=== PATIENT | male | born 1985 | race Caucasian/White ===

== ENCOUNTER 2022-12-06 21:41 | Emergency (ER) | payer OTHER, SELFPAY ==
[2022-12-06 21:48] VITALS: BP 139/125; PULSE 100; RESP 30; TEMP 37.1; O2SAT 100; BMI 39.1
--- NOTE | 2022-12-06 22:44 | ED_ITS ---
HPI - General Adult General Chief complaint: Unspecified Complaint, Adult Stated complaint: unspecified Time Seen by Provider: 12/06/22 22:25 History of Present Illness HPI narrative: This 37-year-old male comes in by ambulance because he feels tingling sensation in his hands and tongue and a bit in his feet. He is breathing faster than normal. He also reports some feeling of lightheadedness. He did take a gummy bear today but states that he does this every day. He has a history of gastric bypass and states that he has not had his regular dose of vitamin B12 which she gets monthly by injection. He arrives by ambulance where he did receive Ativan 2 mg en route. He still appears to be focused on his breathing and tingling sensations. He is not showing any sign of neurologic deficit. His speech is normal. Prior to this he is otherwise in good health. He states that he did lose weight from his gastric bypass surgery which was a bit more than a year ago but over the past winter months he started to gain a little bit of weight so he began to return to his previous strategies. Today he has had about 1200 calories and some liquids so he is not getting the amount of calories today also that he normally has been taking. Related Data Home Medications Medication Instructions Recorded Confirmed No Known Home Medications 12/06/22 12/06/22 Allergies Allergy/AdvReac Type Severity Reaction Status Date / Time No Known Drug Allergies Allergy Verified 12/06/22 21:48 Review of Systems Status of ROS: Reports: 10 or more systems reviewed and unremarkable except as noted in History and below Narrative: Constitutional: No fevers, no weight gain or loss. Eyes: No discharge. No vision changes. HENT: No congestion, no sore throat, no ear pain. Cardiovascular: No chest pain, no palpitations. Respiratory: No shortness of breath, no wheezes, no cough. Gastrointestinal: No abdominal pain, no vomiting, no diarrhea. Genitourinary: No dysuria, no hematuria. Musculoskeletal: Normal range of motion. Skin: No rashes, no pruritis. Neurological: No weakness, speech change. He reports some lightheadedness episodes. He also indicates paresthesias in his hands and feet and also in his tongue. Endo/Heme/Allergies: No bruising or bleeding. No polydipsia. Pysch: no suicidality, no anxiety, no insomnia. All other systems reviewed and are negative. [facility] Social History Smoking Status: Former smoker How often do you have a drink containing alcohol: never AUDIT-C Alcohol total score: 0 Non-prescribed substance use: marijuana (any form) service: No Exam Narrative: Exam Narrative: Constitutional: Well-developed, well-nourished, no acute distress. Vital signs are normal except for increased respiratory rate. Oximetry is at 98-100% on room air. HEENT: Normocephalic, atraumatic. Neck: Normal range of motion. Nontender. Supple. Heart: Regular. No murmurs. Normal rate. Intact distal pulses. Lungs: Clear to auscultation. No chest discomfort. No wheezes, rhonchi, or rales. He does have increased respiratory rate. Abdomen: Normal bowel sounds. Nontender. No rebound tenderness. Genitalia: Deferred. Back: No midline tenderness. Normal range of motion. Extremities: Normal range of motion. No injury. Skin: Intact. No rash. Warm. No erythema or pallor. Neurologic: No weakness. Alert and oriented. He reports altered sensation in his extremities as described above. Tongue is midline. No facial asymmetry. Speech is normal. Vcompw-fj-dccb is normal. No pronator drift. He can raise each leg to my hand. Psychiatric: No suicidality. No anxiety or depression. No insomnia. Nursing notes and vitals signs are reviewed. Const: Vital Signs, click to edit/add: Vital Signs - 24 hr 12/06/22 21:48 12/06/22 23:05 Temperature 98.7 F Pulse Rate 74 Pulse Rate [Left P ulse Oximeter] 100 Respiratory Rate 30 H Blood Pressure [Ri ght Upper Arm] 139/125 H Pulse Oximetry 100 92 Oxygen Delivery Me thod Room Air Course Vital Signs Vital signs: Initial Vital Signs Temperature 98.7 F 12/06/22 21:48 Temperature Source Temporal Artery Scan 12/06/22 21:48 Pulse Rate 100 12/06/22 21:48 Pulse Rhythm 12/06/22 21:48 Pulse Strength 3+ Normal 12/06/22 21:48 Respiratory Rate 30 H 12/06/22 21:48 Blood Pressure 139/125 H 12/06/22 21:48 Blood Pressure Mean 129 12/06/22 21:48 Blood Pressure Position Semi-Fowlers 12/06/22 21:48 Pulse Oximetry 100 12/06/22 21:48 Oxygen Delivery Method 12/06/22 21:48 Vital Signs Temperature 98.7 F 12/06/22 21:48 Pulse Rate 100 12/06/22 21:48 Respiratory Rate 30 H 12/06/22 21:48 Blood Pressure 139/125 H 12/06/22 21:48 Pulse Oximetry 100 12/06/22 21:48 Oxygen Delivery Method 12/06/22 21:48 Temperature 98.7 F 12/06/22 21:48 Pulse Rate 74 12/06/22 23:05 Respiratory Rate 30 H 12/06/22 21:48 Blood Pressure 139/125 H 12/06/22 21:48 Pulse Oximetry 92 12/06/22 23:05 Oxygen Delivery Method 12/06/22 21:48 Medical Decision Making MDM Narrative Medical decision making narrative: This patient comes in reporting tingling sensation in his extremities and in his tongue this started today. He is breathing faster than normal and appears anxious regarding this. He did receive a large dose of Ativan 2 mg and route here by ambulance personnel. This did not seem to help him with regard to his symptoms. He does arrive with normal vital signs except for his respiratory rate is increased. An IV was established where he did receive a L of normal saline and labs were acquired. These returned with reassuring findings. I did order a vitamin B12 level which results are yet pending. The patient states that he is overdue for his vitamin B12 shot. His gastric bypass surgery does put him at risk for vitamin B12 deficiency and this could explain his symptoms. He did receive an injection of vitamin B12 today. He states toward the end of his visit that he is feeling better. He does not appear anxious and is breathing more normally. I did advise him regarding signs and symptoms that would indicate a need for return and re-evaluation. Lab Data Labs: Lab Results 12/06/22 12/06/22 Range/Units 22:25 22:25 WBC 5.43 (4.50-11.00) K/uL RBC 5.59 (4.30-5.90) m/uL Hgb 15.7 (13.5-17.5) gm/dL Hct 45.2 (37.0-53.0) % MCV 81 (80-100) fL MCH 28 (26-34) pg MCHC 35 (32-36) gm/dL RDW Coeff of Marjan 12.0 (11.5-15.5) % Plt Count 289 (140-440) K/uL Neut % (Auto) 52.0 (42.0-72.0) % Lymph % (Auto) 35.4 (20-44) % Bradley % (Auto) 7.9 (0.0-11.0) % Eos % (Auto) 3.5 (0.0-7.0) % Baso % (Auto) 0.6 (0.0-3.0) % Neut # (Auto) 2.83 (1.7-7.0) K/uL Lymph # (Auto) 1.92 (0.90-2.90) K/uL Bradley # (Auto) 0.40 (0.00-0.90) K/UL Eos # (Auto) 0.19 (0.00-0.50) K/uL Baso # (Auto) 0.03 (0.00-0.30) K/uL Sodium 137 (135-149) mmol/L Potassium 3.5 L (3.6-5.1) mmol/L Chloride 107 (96-114) mmol/L Carbon Dioxide 20 (20-32) mmol/L BUN 13 (5-24) mg/dL Creatinine 0.8 (0.5-1.5) mg/dL Estimated Creat Clear 137.27 Estimated GFR 118 ml/min Glucose 116 H (60-115) mg/dL Calcium 9.3 (8.4-10.6) mg/dL C-Reactive Protein < 0.5 L (0.5-1.0) mg/dL Discharge Plan Discharge Clinical Impression: Paresthesias Patient Disposition: Home, Self-Care Condition: Improved Additional Instructions: Continue current plans. Follow up with MD or return if worsening symptoms occur. Prescriptions: No Action No Known Home Medications Stand Alone Forms: [facility]pl[facility] Info Instructions
[2022-12-06 22:58] LABS: Basophils Absolute Auto 0.03 K/uL (0.00-0.30); Basophils Percent Auto 0.6 % (0.0-3.0); Eosinophils Absolute Auto 0.19 K/uL (0.00-0.50); Eosinophils Percent Auto 3.5 % (0.0-7.0); Hematocrit 45.2 % (37.0-53.0); Hemoglobin* 15.7 gm/dL (13.5-17.5); Immature Granulocytes Abs Auto 0.03 K/uL (0.00-0.30); Immature Granulocytes Pct Auto 0.6 %; Lymphocytes Absolute Auto 1.92 K/uL (0.90-2.90); Lymphocytes Percent Auto 35.4 % (20-44); Mean Corpuscular HGB Conc 35 gm/dL (32-36); Mean Corpuscular Hemoglobin 28 pg (26-34); Mean Corpuscular Volume 81 fL (80-100); Monocytes Percent Auto 7.9 % (0.0-11.0); Neutrophils Absolute Auto 2.83 K/uL (1.7-7.0); Platelet Count* 289 K/uL (140-440); Red Blood Count 5.59 m/uL (4.30-5.90); White Blood Count* 5.43 K/uL (4.50-11.00)
[2022-12-06 22:59] LABS: Slide Review Reflex No
[2022-12-06] MEDS: 0.9 % SODIUM CHLORIDE 1000 ml 1,000 ML IV (23:00)
[2022-12-06 23:05] VITALS: PULSE 74; O2SAT 92
[2022-12-06 23:09] LABS: Chloride* 107 mmol/L (96-114); Potassium* 3.5 mmol/L (3.6-5.1); Sodium* 137 mmol/L (135-149)
[2022-12-06 23:12] LABS: Blood Urea Nitrogen* 13 mg/dL (5-24); Carbon Dioxide* 20 mmol/L (20-32); Creatinine* 0.8 mg/dL (0.5-1.5); Est. Creatinine Clearance* 137.27; Estimated Glomerular Filt Rate 118 ml/min
[2022-12-06 23:13] LABS: Calcium* 9.3 mg/dL (8.4-10.6); Glucose* 116 mg/dL (60-115)
[2022-12-06] MEDS: CYANOCOBALAMIN 1,000 MCG/ML inj 1000 MCG IM (23:15)
[2022-12-06 23:18] LABS: C Reactive Protein* < 0.5 mg/dL (0.5-1.0)
[2022-12-07 00:02] LABS: Vitamin B12* 732 pg/mL (243-894)
== END 2022-12-07 00:12 | disposition home or self-care (01) ==
LOC: ED 23:59
PROVIDERS: Emergency Provider Emergency Medicine Emergency Medical Services; PCP Family Medicine
DX: R20.2 Paresthesia of skin (principal)
CPT/HCPCS: 36415; 80048; 82607; 85025; 86140; 96372; 99283; 99284; A0425; A0427; J3420; J7030

== ENCOUNTER 2025-05-30 16:49 | Emergency (ER) | payer OTHER, SELFPAY ==
--- OUTSIDE RECORDS SUMMARY | 2025-05-25 09:30 | XMS_ITS | Encounter Summary ---
Author Organization [facility] Address [address] [place] [address] Care Team Providers Care It Support Specialist Name Role Phone Anjali Arzola APRN, C.N.P. Primary Care Provide r Reason for Visit * Reason Comments Herpes Zoster Post Urgent Care Vis it. Pain has gotten worse since urgent care since 05/11/25- started out as a soreness and not its a stabbing sunburn type of pain. Rash has spread to the chest to the back. Completed antivirals. * Appointment Request (Routine) - Closed Specialty Diagnoses / Procedures Referred By Stephen sheldon Referred To Contact Family Medicine Referral ID Status Reason Start Date Expiration Date Visits Re quested Visits Authorized [id number] Closed 05/24/2025 08/24/2026 1 1 Encounter Details Date Type Department Care Team (Late st Contact Info) Description 05/25/2025 9:30 AM CDT Office Visit Department of Family Medicine, [facility], in [place], [place] [address] [place] [id number] Jose-Carisa Rodriguez APRN, C.N.P., D.N.P. [address], [place] [phone] Neuralgia Post Herpetic (Primary Dx) Social History Tobacco Use Types Packs/Day Years Used Date Smoking Tobacco: Never Smokeless Tobacco: Never Tobacco Cessation:Counseling Given: Not Answered Alcohol Use Standard Drinks/Week Comments Yes 1 (1 standard drink = 0.6 oz pure alcohol) I drink almost daily. This started somewhat recently. (In the last year) [facility] Utilities Answer Date Recorded In the past 12 months has [facility] [employer], gas, oil, or water [employer] threatened to shut off services in your home? No 07/27/2024 Humiliation, Afraid, Rape, and Kick questionnair e Answer Date Recorded Within the last year, have y ou been afraid of your partner or ex-partner? No 11/06/2022 Within the last year, have y ou been humiliated or emotionally abused in other ways by your partner or ex-partner? No Within the last year, have y ou been kicked, hit, slapped, or otherwise physically hurt by your partner or ex-partner? No 11/06/2022 Within the last year, have y ou been raped or forced to have any kind of sexual activity by your partner or ex-partner? No 11/06/2022 Hunger Vital Sign Answer Date Recorded Within the past 12 months, y ou worried that your food would run out before you got the money to buy more. Never true 07/27/20 24 Within the past 12 months, t he food you bought just didn't last and you didn't have money to get more. Never true 07/27/2024 PRAPARE - Transportation Answer Date Re corded In the past 12 months, has l ack of transportation kept you from medical appointments or from getting medications? No 06/29 In the past 12 months, has l ack of transportation kept you from meetings, work, or from getting things needed for daily living? No 07/27/2024 Depression Answer Date Recor ded PHQ-9 Total Score (max 27) 16 03/14 Housing Stability Answer Date Recorded What is your living situation today? I have a [facility] place to live 07/27/2024 Education Answer Date Recorded What is the highest level of school you have completed or the highest degree you have received? 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 - 05/25/2025 9:30 AM CDT Images from the original note were not included. DATE OF VISIT: 05/25/2025 SUBJECTIVE CHIEF COMPLAINT / REASON FOR VISIT Lj Roberto is a 39 y.o. male who presents for evaluation of Herpes Zoster (Post Urgent Care Visit. //Pain has gotten worse since urgent care since 05/11/25- started out as a soreness and not its a stabbing sunburn type of pain. /Rash has spread to the chest to the back. /Completed antivirals.). The patient verbally consented to an audio recording of their visit to assist with the completion of documentation. History of Present Illness Mr. Lj Roberto Codey is a pleasant 39 year old male who presents with shingles pain. Approximately two to three weeks ago, he began experiencing back pain during a highly stressful period. The pain was described as being in a nerve band wrapping around his body, initially without anyrash. A few days later, he developed tightness in his chest on the right side. On Wednesday, ,he visited urgent care after noticing a few small rashes, as [place]. Despite going on the cruise, he spent most of the time sleeping due to discomfort. Over the subsequent weeks, his symptoms evolved to include extreme soreness, tightness, and a sensation loc to a severe sunburn, along with dull stabbing pain in the lower pectoral region and extreme skin sensitivity in the affected area. The pain wakes him up at night, significantly impacting hissleep. He has tried using Lidoderm patches on his back, where the pain initially started, but foundthem minimally effective. He completed a course of antiviral medication. He is currently taking Tylenol, three capsules two to three times a day, but finds it provides little relief. He cannot take NSAIDs due to a history of gastric bypass surgery. No weakness or paralysis, but he notes numbness when touching the rash. He describes jabbing poking pain and discomfort in the area. OBJECTIVE VITAL SIGNS BP 136/88 (BP Location: Right arm, Patient Position: Sitting, Cuff Size: Regular) Comment: Has beenhaving chest pain with the shingles- dont think thats related to blood pressure Pulse 90 Wt (!)151 kg BMI 45.54 kg/m?? Physical Exam Constitutional Appearance: Normal appearance. Skin Findings: Rash present. Comments: Post herpetic neuralgia Neurological Mental Status: He is alert. ASSESSMENT/ PLAN Neuralgia Post Herpetic Postherpetic neuralgia following shingles outbreak. Rash resolved, potential hyperpigmentation. Neurontin recommended for nerve pain. Capsaicin ointment as adjunct. Lidoderm patches ineffective. - Prescribe Neurontin 100 mg capsules TID, increase to 300 mg at night if tolerated. - Recommend capsaicin ointment for topical use. - Discuss ice packs for pain relief. - Advise against NSAIDs due to gastric bypass. - Consider increasing Neurontin to 300 mg BID if no improvement after a few weeks. Orders: gabapentin (Neurontin) 100 mg capsule; Take 1 capsule (100 mg total) by mouth 3 (three) times a day. capsaicin (Zostrix) 0.075 % cream; Apply 1 Application topically 3 (three) times a day. Apply to right side back and chest All questions answered and patient voiced understanding and agreed with this plan. documented in this encounter Plan of Treatment Scheduled Procedures Name Priority Associated Diagnoses Date/Ti me PANNICULECTOMY Gastric Bypass Status Post Pannus Abdominal documented as of this encounter Visit Diagnoses Diagnosis Neuralgia Post Herpetic- Primary documented in this encounter Additional Health Concerns Assessment Noted Time PHQ-9 Depression Total Score: 16 025 1:56 PM CDT documented as of this encounter Care Teams It Support Specialist Relationship Specialty Start Date End Date Anjali Arzola APRN, C.N.P. [address] [place] [phone] PCP - General 02/11/24 documented as of this encounter
--- OUTSIDE RECORDS SUMMARY | 2025-05-30 05:23 | XMS_ITS | Encounter Summary ---
Author Organization [facility] Address [address] [place] [id number] Care Team Providers Care Box Toe Stitcher Name Role Phone Anjali Arzola APRN, C.N.P. Primary Care Provide r Reason for Visit * Reason Comments Abdominal Pain Patient has been hav ing lower abdominal pain that goes around to his back on the right side since yesterday. He has not taken anything for the pain and has not had any emesis episodes but has been nauseous. Encounter Details Date Type Department Care Team (Late st Contact Info) Description 05/30/2025 5:23 AM CDT - 05/30/2025 6:55 AM CDT Emergency [facility] [address] [place] [id number] Kenneth Ramirez, Chelsea-Toby, P.A. [address] [place] [phone] Abdominal Pain (Primary Dx) Discharge Disposition: Home or Self Care Social History Tobacco Use Types Packs/Day Years Used Date Smoking Tobacco: Never Smokeless Tobacco: Never Alcohol Use Standard Drinks/Week Comments Yes 1 (1 standard drink = 0.6 oz pure alcohol) I drink almost daily. This started somewhat recently. (In the last year) [facility] Utilities Answer Date Recorded In the past 12 months has th e [employer] gas, oil, or water company threatened to shut off services in your [...] your living situation today? I have a [facility] place to live 07/27/2024 Education Answer Date Recorded What is the highest level of school you have completed or the highest degree you have received? 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 Legal Sex Male 4:09 PM HORSE DOCTOR Gender Identity Male 11/03/2019 10:21 PM HORSE DOCTOR Sexual Orientation Straight 11/03/2019 10 :21 PM HORSE DOCTOR documented as of this encounter Last Filed Vital Signs Vital Sign Reading Time Taken Comments Blood Pressure 142/82 05/30/2025 6:45 AM CDT Pulse 93 05/30/2025 6:45 AM CDT Temperature 36.2 C (97.2 F) 05/30/2025 5:27 AM CDT Respiratory Rate 20 05/30/2025 5:27 AM CDT Oxygen Saturation 97% 05/30/2025 6:45 AM CDT Inhaled Oxygen Concentration - - Weight 150 kg (330 lb 4 oz) 05/30/2025 5:34 AM C DT Height - - Body Mass Index 45.22 03/31/2022 9:22 AM CDT documented in this encounter Discharge Instructions * Discharge Instructions* Kenneth Ramirez P.A.-C., Chelsea - 05/30/2025 6:35 AM CDT As discussed, your CT is negative. Follow up with the primary care provider in regards to this recent visit. Continue Tylenol with the pain. If you have any new or worsening symptoms, please do not hesitate to return back to the emergency department. See below for details. You were examined and treated today in the [facility] Emergency Department (ED) on an emergency basis. This visit is not a substitute for comprehensive and ongoing medical care. In most cases, you must let your primary physician evaluate you again. Call your doctor today to advise them ofyour ED visit and arrange for out patient follow up. Tell your doctor about any new or lasting problems. After you leave the ED today, please follow the instructions provided to you. Return to the Emergency Department for new, or worsening such as: You cannot stop vomiting. Your pain is only in one part of your belly, like on the right side. You have bloody or black poop, or poop that looks like tar. You have trouble breathing. You have chest pain. These symptoms may be an emergency. Get help right away. Call 911. Do not wait to see if the symptoms will go away. Do not drive yourself to the hospital. TYLENOL (also called acetaminophen) Tylenol is a very good drug that can be purchased without a prescription. 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 Dose: Acetaminophen 500 mg tablets - take 1 or 2 tablets by mouth 3-4 times daily only as needed. Do not take more than 4000 mg (which is 8 of the 500 mg pills) in any 24-hour period. Do not take themedicine for longer than 5 days without seeing a doctor. If you feel you need the medicine longer than 5 days, call your doctor to discuss the situation. -Do not continue this medication indefinitely. Taking this medication for prolonged period of time can have adverse effects such as damage to the liver, and bleeding in the stomach. -Stop this medication IMMEDIATELY and call your doctor if you notice any abdominal pain, nausea/vomiting, or dark or bloody stools. IBUPROFEN (also called Motrin or Advil) Ibuprofen is a very good drug and can be purchased without a prescription. It is a strong pain reliever, fever supervisor wood crew, and anti-inflammatory (reduce the swelling). Dose: Ibuprofen 200 mg tablets -take 3-4 tablets by mouth 3 times daily for 5 to 7 days. If you feel you need the medicine longer than this, call your doctor to discuss the situation. Do not take more than 2400 mg (which is 12 of the 200 mg tablets) in any 24-hour period. -Do not continue this medication indefinitely. If taking this medication for a prolonged period of time can have adverse effects such as elevation of blood pressure, bleeding in the stomach, and kidney damage. -Stop this medication IMMEDIATELY and call your doctor if you notice any abdominal pain, nausea/vomiting, or dark or bloody stools. * Attachments The following attachments cannot be sent through Care Everywhere. * Abdominal Pain Adult [id number] (Vietnamese) documented in this encounter Medications at Time of Discharge capsaicin (Zostrix) 0.075 % creamIndications :Neuralgia Post Herpetic Apply 1 Application topically 3 (three) times a day. Apply to right side back and chest 28.3 g 05/25/2025 FLUoxetine (PROzac) 20 mg capsuleIndicatio ns:Depressive Disorder Take 1 capsule (20 mg total) by mouth daily. 30 capsule 2 03/14/2025 gabapentin (Neurontin) 100 mg capsuleIndicatio ns:Neuralgia Post Herpetic Take 1 capsule (100 mg total) by mouth 3 (three) times a day. 270 capsule 3 05/25/2025 documented as of this encounter ED Notes * Kenneth Ramirez P.A.-C., P.A. - 05/30/2025 5:39 AM CDT Images from the original note were not included. SUBJECTIVE CHIEF COMPLAINT/REASON FOR VISIT Abdominal Pain (Patient has been having lower abdominal pain that goes around to his back on the right side since yesterday. He has not taken anything for the pain and has not had any emesis episodesbut has been nauseous. ) HISTORY OF PRESENT ILLNESS Lj Roberto is a 39 y.o. male presents to emergency department for concerns of abdominal pain. Comorbidities include: Status post gastric bypass. 39-year-old male presents to the emergency department for evaluation of abdominal pain. Per chart review, the patient was recently seen on 05/25/2025 for a post-urgent care appointment after being diagnosed with herpes zoster. At that time, the patient continued to have symptoms of herpes zoster, including paresthesias in his area of pain; however, the rash had improved. He was subsequently started on gabapentin and capsaicin. The patient states that the rash has improved; however, yesterday he began developing bilateral lower abdominal pain, which he describes as a cramping sensation. He also noticed that yesterday he had ongoing diarrhea. He denies any recent travel, fevers, or chills. He denies bloody stools. He does note that the rash has improved, but he feels this is a different type of pain. He states the pain radiates from his b ack. On exam, the patient is well-appearing and in no acute distress. He does endorse nausea. He denies chest pain, shortness of breath, fevers, or chills. Denies testicular pain. REVIEW OF SYSTEMS OBJECTIVE Initial Vitals [05/30/25 0527] Temperature 36.2 ??C Pulse Rate 94 Heart Rate Resp Rate 20 Blood Pressure (!) 147/96 SpO2 98 % Pain Score 6 PHYSICAL EXAMINATION Constitutional: Nursing note and vitals reviewed. Vital signs are normal. He is cooperative. No distress. HENT: Head: Normocephalic and atraumatic. Head is without raccoon's eyes and without laceration. There is normal jaw occlusion. Nose: Nose normal. No rhinorrhea. Eyes: Conjunctivae, EOM and lids are normal. Periorbital area normal appearing. Pulmonary/Chest: Effort normal. No respiratory distress. Discoloration in his car where herpes zoster rash was. No overlying erythema, warmth. All blisteredhealed. Abdominal: Soft, nondistended abdomen. Left lower quadrant tenderness without any rebound, guarding or rigidity on examination. No right lower quadrant tenderness. No CVA tenderness bilaterally. Musculoskeletal: Cervical back: Full passive range of motion without pain. Neurological: Alert. Skin: Skin is warm and dry. ASSESSMENT/PLAN Assessment and Plan In brief, a 39-year-old male presents to the emergency department for evaluation of abdominal pain.Differential includes diverticulitis, UTI/pyelonephritis, less likely ischemic colitis/mesenteric ischemia, less likely testicular torsion, bowel obstruction, post-herpetic neuralgia, among others. On exam, the patient is well-appearing and in no acute distress. Physical exam as documented above. He endorses bilateral abdominal pain; however, on exam, he has left lower quadrant tenderness. Given the diarrhea, I question diverticulitis or another infectious etiology; however, given the focality of his pain, we will order a CT abdomen and pelvis. He has no epigastric tenderness that would be concerning for pancreatitis, so we will defer lipase. Given the focal tenderness, I have a lower suspicion for mesenteric ischemia. He denies any testicular pain or radiation to his testicles, so I havea lower suspicion for testicular torsion. He denies dysuria, frequency, or urgency. We will plan toorder a CT abdomen and pelvis along with CMP and CBC. Given that the patient has had bariatric surgery, we will defer NSAIDs and will give a dose of morphine and plan for Zofran given the nausea. SeeED course for final disposition. ED Course as of 05/30/25 0640 WedMay 30, 2025 0612 Estimated GFR (eGFR): >90 Normal renal function 0612 Creatinine: 0.86 Normal renal function 0613 Anion Gap, P: 13 Normal anion 0613 Aspartate Aminotransferase (AST), P: 27 AST within normal limits 0613 Alanine Aminotransferase (ALT), P: 36 ALT within normal limits 0613 Bilirubin, Total, P: 0.5 Bilirubin normal, less concern for biliary tree pathology or obstruction 0635 CT Abdomen Pelvis with IV Contrast No acute abdominopelvic findings to account for the patient's left lower quadrant discomfort. 2. Status post Lexie-en-Y gastric bypass. No obstruction or appreciable wall thickening. 3. Hepatomegaly. 0638 CT negative. Patient's pain improved. CBC without leukocytosis. CMP within normal limits. At this time, patient's recommended follow up with his outpatient primary care provider in regards to this recent visit. Understands that has there are any new or worsening symptoms, they should promptly return. Patient discharged in stable and ambulatory condition. Final Diagnoses: as of 05/30/25 0640 Abdominal Pain Kenneth Ramirez P.A.-C., P.A. 05/30/25 0640 documented in this encounter Plan of Treatment Scheduled Procedures Name Priority Associated Diagnoses Date/Ti me PANNICULECTOMY Gastric Bypass Status Post Pannus Abdominal documented as of this encounter Procedures Procedure Name Priority Date/Time Associated Diagnosis Comments CT ABDOMEN PELVIS WITH IV CONTRAST RAD - Semiurgent (Fast; most ED patients; some inpatients) 05/30/2025 6:24 AM CDT CBC WITH DIFFERENTIAL, B STAT 05/30/2025 5:46 AM CDT COMPREHENSIVE METABOLIC PANEL, S/P STAT 05/30/2025 5:46 AM CDT documented in this encounter Results * CT Abdomen Pelvis with IV Contrast (05/30/2025 6:24 AM CDT) Anatomical Region Laterality Modality Abdomen, Pelvis, Abdominal R ST LOS, Abdominal ARZ LOS, Abdominal FLA LOS N/A Computed Tomography 05/30/2025 6:25 AM CDT Impressions 05/30/2025 6:30 AM CDT 1. No acute abdominopelvic findings to account for the patient's left lower quadrant discomfort. 2. Status post Lexie-en-Y gastric bypass. No obstruction or appreciable wall thickening. 3. Hepatomegaly. Narrative 05/30/2025 6:30 AM CDT EXAM: CT ABDOMEN PELVIS WITH IV CONTRAST COMPARISON: None FINDINGS: Lower Thorax: Clear lung bases. Normal included heart and pericardium. Liver: Liver is enlarged, measuring 23 cm craniocaudal. Scattered too small to characterize hypodensities. Gallbladder/bile ducts: Normal gallbladder and bile ducts. Pancreas: Normal. Spleen: Normal. Adrenal glands: Normal. Kidneys/Ureters: Kidneys are symmetric in size and parenchymal enhancement pattern. No hydronephrosis or nephrolithiasis. Gastrointestinal tract: Normal distal esophagus. Status post Lexie-en-Y gastric bypass. No bowel obstruction or appreciable wall thickening. Normal appendix. Peritoneum/Retroperitoneum: No free air or free fluid. No retroperitoneal hematoma. Lymph nodes: No lymphadenopathy. Vascular: Normal caliber abdominal aorta. Normal IVC. Patent portal, superior mesenteric and splenic veins. Pelvis: No free fluid. Normal urinary bladder.Normal reproductive organs. Musculoskeletal: No acute soft tissue or osseous abnormality. No inguinal or ventral abdominal hernia. Procedure Note Mitchell Mohan M.D. - 05/30/2025 EXAM: CT ABDOMEN PELVIS WITH IV CONTRAST COMPARISON: None FINDINGS: Lower Thorax: Clear lung bases. Normal included heart and pericardium. Liver: Liver is enlarged, measuring 23 cm craniocaudal. Scattered toosmall to characterize hypodensities. Gallbladder/bile ducts: Normal gallbladder and bile ducts. Pancreas: Normal. Spleen: Normal. Adrenal glands: Normal. Kidneys/Ureters: Kidneys are symmetric in size and parenchymal enhancementpattern. No hydronephrosis or nephrolithiasis. Gastrointestinal tract: Normal distal esophagus. Status post Azyr-jh-Dajkvwqe bypass. No bowel obstruction or appreciable wall thickening.Normal appendix. Peritoneum/Retroperitoneum: No free air or free fluid. No retroperitonealhematoma. Lymph nodes: No lymphadenopathy. Vascular: Normal caliber abdominal aorta. Normal IVC. Patent portal,superior mesenteric and splenic veins. Pelvis: No free fluid. Normal urinary bladder.Normal reproductiveorgans. Musculoskeletal: No acute soft tissue or osseous abnormality. No inguinalor ventral abdominal hernia. IMPRESSION: 1. No acute abdominopelvic findings to account for the patient's leftlower quadrant discomfort. 2. Status post Lexie-en-Y gastric bypass. No obstruction or appreciablewall thickening. 3. Hepatomegaly. Kenneth Ramirez P.A.-C., P.A. IMG CT PROCEDURE S Final Result * CBC with Differential, Blood (05/30/2025 5:46 AM CDT) Hemoglobin 15.3 13.2 - 16.6 g/dL 05/30/2025 6:21 AM CDT CNFL Hematocrit 45.2 38.3 - 48.6 % 05/30/2025 6:21 AM CDT CNFL Erythrocytes 5.50 4.35 - 5.65 x10(12)/L 05/30/2025 6:21 AM CDT CNFL MCV 82.2 78.2 - 97.9 fL 05/30/2025 6:21 AM CDT CNFL RBC Distrib Width 12.7 11.8 - 14.5 % 05/30/2025 6:21 AM CDT CN[facility] Platelet Count 294 135 - 317 x10(9)/L 05/30/2025 6:21 AM CDT CNFL Leukocytes 6.0 3.4 - 9.6 x10(9)/L 05/30/2025 6:21 AM CDT CNFL Neutrophils 3.26 1.56 - 6.45 x10(9)/L 05/30/2025 6:21 AM CDT CNFL Lymphocytes 2.07 0.95 - 3.07 x10(9)/L 05/30/2025 6:21 AM CDT CNFL Monocytes 0.47 0.26 - 0.81 x10(9)/L 05/30/2025 6:21 AM CDT CNFL Eosinophils 0.16 0.03 - 0.48 x10(9)/L 05/30/2025 6:21 AM CDT CNFL Basophils 0.04 0.01 - 0.08 x10(9)/L 05/30/2025 6:21 AM CDT CNFL Blood (Blood, Venous) 05/30/2025 5:46 AM CDT 05/30/2025 5:50 AM CDT Chelsea Brothers P.A.-C. LAB BLOOD ADD-ON Final Result [facility] [address] [place] [id number], [facility] [[email or web address]] [facility] in [address] [address] * Comprehensive Metabolic Panel (05/30/2025 5:46 AM CDT) [facility] Potassium, P 4.2 3.6 - 5.2 mmol/L 05/30/2025 6:08 AM CDT CNFL Sodium, P 140 135 - 145 mmol/L 05/30/2025 6:08 AM CDT CNFL Chloride, P 104 98 - 107 mmol/L 05/30/2025 6:08 AM CDT CNFL Bicarbonate, P 23 22 - 29 mmol/L 05/30/2025 6:08 AM CDT CNFL Anion Gap, P 13 7 - 15 05/30/2025 6:08 AM CDT CNFL BUN (Blood Urea Nitrogen), P 12 8 - 24 mg/dL 05/30/2025 6:08 AM CDT CNFL Creatinine 0.86 0.74 - 1.35 mg/dL 05/30/2025 6:08 AM CDT CNFL Estimated GFR (eGFR) >90 >=60 mL/min/BS A 05/30/2025 6:08 AM CDT CNFL Comment: Estimated GFR calculated using the 2020 CKD_EPI creatinine equation. Calcium, Total, P 9.0 8.6 - 10.0 mg/dL 05/30/2025 6:08 AM CDT CNFL Glucose, P 110 70 - 140 mg/dL 05/30/2025 6:08 AM CDT CNFL Protein, Total, P 7.2 6.3 - 7.9 g/dL 05/30/2025 6:08 AM CDT CNFL Albumin, P 4.4 3.5 - 5.0 g/dL 05/30/2025 6:08 AM CDT CNFL Aspartate Aminotransferase (AST), P 27 8 - 48 U/L 05/30/2025 6:08 AM CDT CNFL Alkaline Phosphatase, P 76 40 - 129 U/L 05/30/2025 6:08 AM CDT CNFL Alanine Aminotransferase (ALT), P 36 7 - 55 U/L 05/30/2025 6:08 AM CDT CNFL Bilirubin, Total, P 0.5 0.0 - 1.2 mg/dL 05/30/2025 6:08 AM CDT CNFL Blood (Blood, Venous) 05/30/2025 5:46 AM CDT 05/30/2025 5:50 AM CDT Kenneth Ramirez P.A.-C., P.A. LAB BLOOD ADD-ON Final Result [facility] [address] [place] [address], [facility] [[email or web address]] CNFL [facility] [place] [address] documented in this encounter Visit Diagnoses Diagnosis Abdominal Pain- Primary documented in this encounter Administered Medications Inactive Administered Medications - up to 3 most recent administrations Medication Order MAR Action Action Date Dose Rate Site iohexoL 350 mg iodine/mL solution 171 mL (Omnipaque) 171 mL, intravenous, Once in imaging, contrast, Starting on Wed05/30/25 at 0605, For 1 dose Given 05/30/2025 6:25 AM CDT 171 mL morphine injection 4 mg 4 mg, intravenous, Once, On Wed05/30/25 at 0539, For 1 dose Given 05/30/2025 5:47 AM CDT 4 mg ondansetron (PF) injection 4 mg (Zofran) 4 mg, intravenous, Once, On Wed05/30/25 at 0539, For 1 dose Given 05/30/2025 5:47 AM CDT 4 mg sodium chloride 0.9 % flush 93 mL 93 mL, intravenous, Once in imaging, line care, Starting on Wed05/30/25 at 0605, For 1 dose Given 05/30/2025 6:25 AM CDT 93 mL sodium chloride 0.9 % injection 10 mL 10 mL, intravenous, Once in imaging, line care, Starting on Wed05/30/25 at 0605, For 1 dose Given 05/30/2025 6:25 AM CDT 10 mL documented in this encounter Active and Recently Administered Medications Times are shown in CDT. Scheduled Medication Order 05/28/2025 05/29/2025 05/30/2025 morphine injection 4 mg (COMPLETED) 4 mg, intravenous, Once, On Wed05/30/25 at 0539, For 1 dose 0547 (Given - Provid er: Abraham Man R.N.) ondansetron (PF) injection 4 mg (Zofran) (COMPLETED) 4 mg, intravenous, Once, On Wed05/30/25 at 0539, For 1 dose 0547 (Given - Provid er: Abraham Man R.N.) PRN Medication Order 05/28/2025 05/29/2025 05/30/2025 iohexoL 350 mg iodine/mL solution 171 mL (Omnipaque) (COMPLETED) 171 mL, intravenous, Once in imaging, contrast, Starting on Wed05/30/25 at 0605, For 1 dose 0625 (Given - Provid er: Bethany Malone(R)(CT), R.T.(R)) sodium chloride 0.9 % flush 93 mL (COMPLETED) 93 mL, intravenous, Once in imaging, line care, Starting on Wed05/30/25 at 0605, For 1 dose 0625 (Given - Provid er: Bethany Malone(R)(CT), R.T.(R)) sodium chloride 0.9 % injection 10 mL (COMPLETED) 10 mL, intravenous, Once in imaging, line care, Starting on Wed05/30/25 at 0605, For 1 dose 0625 (Given - Provid er: Bethany Malone(R)(CT), R.T.(R)) documented in this encounter Additional Health Concerns Assessment Noted Time PHQ-9 Depression Total Score: 16 03/14/2 025 1:56 PM CDT documented as of this encounter Care Teams Box Toe Stitcher Relationship Specialty Start Date End Date Anjali Arzola, HALIMA, C.N.P. [address] [facility] [place] [id number] PCP - General 02/11/24 documented as of this encounter
--- OUTSIDE RECORDS SUMMARY | 2025-05-30 16:50 | XMS_ITS | Clinical Summary ---
Author Organization [facility] Address [address] [place] [address] Care Team Providers Care Dough Mixing Machine Operator Name Role Phone Anjali Arzola APRN, C.N.P. Primary Care Provide r Source Comments Patient records contain information from all sites at [facility]. For routine questions regarding patient records, call [phone] during business hours, M-F 8:00 AM - 5:00 PM Central Time. Record requests for emergency care only can be directed to [phone] at any time.[facility] Allergies Active Allergy Reactions Criticality Noted Date Comments Nsaids (Non-Steroidal Anti-Inflammatory Drug) Anaphylaxis High 03/31/2021 Actually, contraindicated for gastric bypass patients. Medications * This document contains information received from the source organization and may not represent a complete record from that organization. FLUoxetine (PROzac) 20 mg capsuleIndicat ions:Depressiv e Disorder Take 1 capsule (20 mg total) by mouth daily. 30 capsule 2 5 Active Additional Information Patient not taking.Reported on 05/25/2025 gabapentin (Neurontin) 100 mg capsuleIndicat ions:Neuralgia Post Herpetic Take 1 capsule (100 mg total) by mouth 3 (three) times a day. 270 capsule 3 5 Active capsaicin (Zostrix) 0.075 % creamIndicatio ns:Neuralgia Post Herpetic Apply 1 Application topically 3 (three) times a day. Apply to right side back and chest 28.3 g 5 Active valACYclovir (Valtrex) 1000 mg tablet Take 1 tablet by mouth 3 (three) times a day with meals. 5 05/25/20 25 Discontin ued(Thera py completed ) Active Problems Problem Noted Date Diagnosed Date Gastric Bypass Status Post 03/31/2022 Overview (03/31/2022): Added automatically from request for surgery [id number] Pannus Abdominal 03/31/2022 Overview (03/31/2022): Added automatically from request for surgery [id number] Resolved Problems Problem Noted Date Diagnosed Date Resolved Date Morbid Obesity Body Mass Ind ex 45.0-49.9 Adult 11/19/2020 08/19/2021 Pain Joint 10/03/2020 11/11/2020 Neuropathy Ulnar Right 01/17/201911/11 Morbid Obesity Body Mass Ind ex 40.0-44.9 Adult 01/17/2019 08/19/2021 Apnea Sleep Obstructive 05/06/201510/28 Elevated Blood Pressure Without Hypertension 5 11/11/2020 Encounters * This document contains information received from the source organization and may not represent a complete record from that organization. Date Type Department Care Team Description 05/30/2025 5:23 AM CDT - 05/30/2025 6:55 AM CDT Emergency [facility] [address] [place] [phone] Kenneth Ramirez, Dimitri., P.A. Abdominal Pain (Primary Dx) Discharge Disposition: Home or Self Care 05/30/2025 Nurse Triage Department of Family Medicine, [facility], [address] [phone] Yennifer Salinas R.N. Abdominal Pain 05/25/2025 9:30 AM CDT Office Visit Department of Family Medicine, [facility], in [place] [address] [place] [address] Carisa Ralph APRN, C.N.P., D.N.P. Neuralgia Post Herpetic (Primary Dx) 05/24/2025 Nurse Triage Department of [facility], [facility], [address] [phone] Shell Sadler M.SSonya., R.N. Herpes Zoster 04/03/2025 Refill Department of Family Medicine, [facility], in [address] [address] Anjali Arzola APRN, C.N.P. Med Refill 03/14/2025 2:00 PM CDT Telemedicine Department of [facility], [facility], [address] [phone] Anjali Arzola APRN, C.N.P. Depressive Disorder Discharge Disposition: Home or Self Care from Last 3 Months Immunizations Immunization Administration Dates Next Due HepA / HepB 01/11/2018 HepB Pediatric/Adolescent 04/29/2001,05/27/2000, 04/22/2000 Influenza TIV (IM) 06/27/2015 Influenza, Injectable, Mdck, Preservative Free, Quadrivalent 07/20/2023,09/01/2019 Influenza, Seasonal, Injectable 07/03/2021,06/27 Influenza, Unspecified 07/18/2014 MMR 01/11/2018,02/13/2000,01/08/1989 Polio, Unspecified 05/28/1992, 9,1987,1986 SARS-COV-2 (COVID-19) - PFIZ ER (Discontinued)(12 years or older) 07/30/2021 SARS-COV-2 (COVID-19) - PFIZ ER BIVALENT TS(Discontinued)(12 YEARS OR OLDER) 08/25/2022 Td (Adult), adsorbed 02/13/2000 Td Preservative Free (TENIVA C, DECAVAC) 01/11/2018,02/13/2000 Tdap 01/11/2018 influenza LAIV (Nasal) (2 ye ars through 49 years) 07/05/2013 influenza trivalent vaccine (6 months and older)(PF) 08/04/2024,07/18/2014 influenza vaccine quad (FLUZONE/FLUARIX) (6 months and older)(PF) 08/25/2022,08/08/2020,09/28/2018,2015,07/03/2015 Family History Medical History Relation Name Comments Hypercoagulability Father vAtar Roberto Hypertension Father Avtar Roberto Obesity Mother Beena Noeziova Arthritis Paternal Grandfather Francais Nohava Coronary artery disease Paternal Grandfather Francais Nohava Hypercoagulability Paternal Grandfather Franccoreys Nohav a Hypertension Paternal Grandfather Francais Nohava Obesity Paternal Grandfather Francais Nohava Stroke Paternal Grandfather Francais Nohava Hypercoagulability Paternal Grandmother Obesity Sister 1 Lida Nohava Obesity Sister 2 Suzanne Nohava Obesity Sister 3 Suzanne Nohava Relation Name Status Comments Father Avtar Notheresa Alive Mother Beena Nohava Alive Paternal Grandfather Franccoreys Nohava Alive Paternal Grandmother Sister 1 Lida Nohava Alive Sister 2 Suzanne Nohava Alive Sister 3 Suzanne Nohava Alive Social History Tobacco Use Types Packs/Day Years Used Date Smoking Tobacco: Never Smokeless Tobacco: Never Tobacco Cessation:Counseling Given: Not Answered Alcohol Use Standard Drinks/Week Comments Yes 1 (1 standard drink = 0.6 oz pure alcohol) I drink almost daily. This started somewhat recently. (In the last year) [facility] Utilities Answer Date Recorded In the past 12 months has e [employer], gas, oil, or water [employer] threatened to shut off services in your home? No 07/27/2024 Humiliation, Afraid, Rape, and Kick questionnair e Answer Date Recorded Within the last year, have y ou been afraid of your partner or ex-partner? No 11/06/2022 Within the last year, have y ou been humiliated or emotionally abused in other ways by your partner or ex-partner? No 02 /06/2023 Within the last year, have y ou [...] your living situation today? I have a [facility] place to live 07/27/2024 Education Answer Date Recorded What is the highest level of school you have completed or the highest degree you have received? 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 PM SHELLFISH FARMING SUPERVISOR Legal Sex Male 4:09 PM SHELLFISH FARMING SUPERVISOR Gender Identity Male 11/03/2019 10:21 PM SHELLFISH FARMING SUPERVISOR Sexual Orientation Straight 11/03/2019 10 :21 PM SHELLFISH FARMING SUPERVISOR Last Filed Vital Signs Vital Sign Reading [...] oz) 05/30/2025 5:34 AM C DT Height 182 cm (5' 11.65) 03/31/2022 9:22 AM CDT Body Mass Index 45.22 03/31/2022 9:22 AM CDT Plan of Treatment Scheduled Procedures Name Priority Associated Diagnoses Date/Ti me PANNICULECTOMY Gastric Bypass Status Post Pannus Abdominal Health Maintenance Due Date Last Done Comments HPV Vaccines (1 - 3-dose SCDM series) 2014 Hepatitis A Vaccines (2 of 3 - Hep A Twinrix risk 3-dose series) 02/08/2018 01/11/2018 Influenza Vaccine (#1) 2025 , 07/20/2023, 08/25/2022, Additional history exists Lipid (Cholesterol) Screening 12/10/2027 12/09/2022, 01/24/2021, 03/18/2020 DTaP,Tdap,and Td Vaccines (4 - Td or Tdap) 01/12/2028 01/11/2018, 01/11/2018, 02/13/2000, Additional history exists IPV Vaccines Completed 05/28/1992, 12/26, 1987, Additional history exists Hepatitis B Vaccines Completed 01/11/2018, 04/29/2001, 05/27/2000, Additional history exists HIV Screening Completed 11/11/2020 Hepatitis C Screening Completed 11/11/2020 COVID-19 Vaccine Completed 08/04/2024, , 08/25/2022, Additional history exists Depression Screening (Annual PHQ-2) Completed 03/14/2025, 10/09/2024 Pneumococcal vaccine (0-49 years) Aged Out No longer eligible based on patient's age to complete this topic Procedures Procedure Name Priority Date/Time Associated Diagnosis Comments CT ABDOMEN PELVIS WITH IV CONTRAST RAD - Semiurgent (Fast; most ED patients; some inpatients) 05/30/2025 6:24 AM CDT CBC WITH DIFFERENTIAL, B STAT 05/30/2025 5:46 AM CDT COMPREHENSIVE METABOLIC PANEL, S/P STAT 05/30/2025 5:46 AM CDT LIPID PANEL, S Routine 12/09/2022 2:16 PM CDT Presyncope Paresthesia Transient Ischemic Attack HCV AB SCRN W/REFLEX TO HCV PCR, S Routine 11/11/2020 10:03 AM SHELLFISH FARMING SUPERVISOR Preoperative Exam HIV-1/-2 AG AND AB SCREEN, PLASMA Routine 11/11/2020 10:03 AM SHELLFISH FARMING SUPERVISOR Preoperative Exam from Last 3 Months or Most Recently Relevant to Health Maintenance Results * CT Abdomen Pelvis with IV [...] Gastrointestinal tract: Normal distal esophagus. Status post Mumo-yx-Cwlvobzu bypass. No bowel obstruction or appreciable wall [...] with Differential, Blood (05/30/2025 5:46 AM CDT) Pathologist [facility] Hemoglobin 15.3 13.2 - 16.6 g/dL 05/30/2025 [...] P.A.-C., P.A. LAB BLOOD ADD-ON Final Result [facility] [address] [place] [address], [facility] [place] [address] * Comprehensive Metabolic Panel (05/30/2025 5:46 AM CDT) Potassium, P 4.2 3.6 - 5.2 mmol/L [...] P.A.-C., P.A. LAB BLOOD ADD-ON Final Result [facility] [address] [place] [id number], [facility] in [address] [address] * (ABNORMAL) Lipid Panel (12/09/2022 2:16 PM CDT) Triglycerides 160(H) mg/dL 12/09/2022 2:58 PM CDT [facility]FL Comment: ----REFERENCE VALUE---- Normal: <150 mg/dL Borderline High: 150-199 mg/dL High: 200-499 mg/dL Very High: > or =500 mg/dL Cholesterol, Total 163 mg/dL 2022 2:58 PM CDT [facility] Comment: ----REFERENCE VALUE---- Desirable: < 200 mg/dL Borderline High: 200 - 239 mg/dL High: > or = 240 mg/dL Cholesterol, LDL, Calculated 82 mg/dL 12/09/2022 2:58 PM CDT [facility] Comment: ----REFERENCE VALUE---- Desirable: <100 mg/dL Above Desirable: 100-129 mg/dL Borderline High: 130-159 mg/dL High: 160-189 mg/dL Very High: >=190 mg/dL ----ADDITIONAL INFORMATION---- LDL cholesterol calculated using the Subramanian/NIH equation. Cholesterol, HDL 54 >=40 mg/dL 12/10/19 2:58 PM CDT [facility]FL Cholesterol, Non-HDL, Calculated 109 mg/dL 12/09/2022 2:58 PM CDT [facility] Comment: ----REFERENCE VALUE---- Desirable: <130 mg/dL Above Desirable: 130-159 mg/dL Borderline High: 160-189 mg/dL High: 190-219 mg/dL Very High: > or =220 mg/dL Fasting (8 HR or more) No 12/09/2022 2:23 PM CDT [facility]FL Blood (Blood, Venous) 12/09/2022 2:16 PM CDT 12/09/2022 2:23 PM CDT us Gael Nguyen M.D. LAB BLOOD ADD-ON Final Re sult [facility] [address] [place] [id number], [facility] in [address] [address] * HIV-1/-2 Ag and Ab Screen, Plasma (11/11/2020 10:03 AM SHELLFISH FARMING SUPERVISOR) HIV Ag/Ab Screen, P Negative Negative 11/11/2020 4:57 PM SHELLFISH FARMING SUPERVISOR ECLR Comment: Negative result does not rule out HIV infection. If exposure to HIV infection occurred <14 days ago, contact the laboratory to request addition of HIV-1 RNA detection / quantification test. HIV-1 p24 Ag Screen, P Negative Negative 11/11/2020 4:57 PM SHELLFISH FARMING SUPERVISOR ECLR Comment: Negative result does not rule out HIV infection. If exposure to HIV infection occurred <14 days ago, contact the laboratory to request addition of HIV-1 RNA detection / quantification test. HIV-1 Ab Screen, P Negative Negative 2020 4:57 PM SHELLFISH FARMING SUPERVISOR ECLR Comment: Negative result does not rule out HIV infection. If exposure to HIV infection occurred <14 days ago, contact the laboratory to request addition of HIV-1 RNA detection / quantification test. HIV-2 Ab Screen, P Negative Negative 2020 4:57 PM SHELLFISH FARMING SUPERVISOR ECLR Comment: Negative result does not rule out HIV infection. If exposure to HIV infection occurred <14 days ago, contact the laboratory to request addition of HIV-1 RNA detection / quantification test. Blood (Blood, Venous) 11/11/2020 10:03 AM SHELLFISH FARMING SUPERVISOR 11/11/2020 2:19 PM SHELLFISH FARMING SUPERVISOR us Teofilo Ramirez M.D., Ph.D. LAB MICROBIOLOGY - BLOO D ORDERABLES Final Result [facility] [address] [place] [address], [facility] ECLR [facility] [place] [address] * HCV Ab Scrn w/Reflex to HCV PCR, Serum (11/11/2020 10:03 AM SHELLFISH FARMING SUPERVISOR) HCV Ab Screen, S Negative Negative 11/11/19 21 3:09 PM SHELLFISH FARMING SUPERVISOR ECLR Comment: Biotin has been identified by the bb shot packer as a potential interfering substance. Higher concentrations of biotin may be found in multivitamins, hair/nail supplements, and workout supplements. If the result does not match clinical observations, repeat testing after patient refrains from the use of supplements for at least 12 hours. Blood (Blood, Venous) 11/11/2020 10:03 AM SHELLFISH FARMING SUPERVISOR 11/11/2020 2:19 PM SHELLFISH FARMING SUPERVISOR Narrative [facility] - 11/11/2020 3:09 PM SHELLFISH FARMING SUPERVISOR Specimen Information: Specimen ID: [id number] Specimen Type: Blood Specimen Collection Start Date: 11/11/2020 10:03 AM Specimen Received Date: 11/11/2020 2:19 PM Specimen ID: [id number] Specimen Type: Blood Specimen Collection Start Date: 11/11/2020 10:03 AM Specimen Received Date: 11/11/2020 2:19 PM Teofilo Ramirez M.D., Ph.D. LAB MICROBIOLOGY - BLOO D ORDERABLES Final Result [facility] [address] [place] [address], [facility] ECLR [facility] in [place] [phone] from Last 3 Months or Most Recently Relevant to Health Maintenance Insurance [employer] Advance Directives For more information, please contact: [phone] * Full Code (Latest Code Status on File) Date Activated Date Inactivated Comments 11/18/2020 7:37 PM 11/20/2020 3:21 PM Question Answer Comments Full Code: Discussed * Full Code Date Activated Date Inactivated Comments 11/18/2020 10:26 AM 11/18/2020 7:37 PM Question Answer Comments Full Code: Discussed Care Teams Dough Mixing Machine Operator Relationship Specialty Start Date End Date Anjali Arzola APRN, C.N.P. [address] [place] [id number] PCP - General 02/11/24
--- OUTSIDE RECORDS SUMMARY | 2025-05-30 16:50 | XMS_ITS | Encounter Summary ---
Author Organization [facility] Address [address] [place] [address] Care Team Providers Care Manager Primary Name Role Phone Anjali Arzola APRN, C.N.P. Primary Care Provide r Reason for Visit * Reason Onset Date Comments Herpes Zoster 05/24/2025 Encounter Details Date Type Department Care Team (Late st Contact Info) Description 05/24/2025 Nurse Triage Department of Family Medicine, [facility], in [address] [phone] Shell Sadler M.S.N., R.N. Herpes Zoster Social History Tobacco Use Types Packs/Day Years Used Date Smoking Tobacco: Never Smokeless Tobacco: Never Alcohol Use Standard Drinks/Week Comments Yes 1 (1 standard drink = 0.6 oz pure alcohol) I drink almost daily. This started somewhat recently. (In the last year) [facility] Utilities Answer Date Recorded In the past 12 months has e electric, gas, oil, or water company threatened to [...] your living situation today? I have a [facility] place to live 07/27/2024 Education Answer Date Recorded What is the highest level of school you have completed or the highest degree you have received? 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 - 05/24/2025 2:45 PM CDT Chief Complaint / Reason for Call Patient is a 39 y.o. male calling regarding Herpes Zoster. Assessment Concern: Two weeks ago started feeling soreness on right side of chest and soreness on right side of back. He also developed a rash that looked like red bumps in that area. Went to an Urgent Care in [place], [place], and was diagnosed with shingles. He completed the course of antivirals that was prescribed. The rash has improved, but is still present. He continues to have severe pain in the rash area and this increases when he raises him arm. The area feels like a combination of a sunburn, soreness and dull stabbing. He also is exhausted, tired, and feeling out of it at times. Denies that the rash has spread to his face. Shingles Present for: two weeks Home cares tried: Tylenol Calling to request: advice The recommended disposition is See a health care provider within 24 hours. Patient was warm transferred to [facility] Patient Appointment Racehorse Trainer at the clinic for further assistance. and If clinic appointment is not available in the next 24 hours, caller is advisedto be seen in urgent care or emergency department Reason for Disposition SEVERE pain (e.g., excruciating) Protocols used: Shingles (Zoster)-Adult- Care Advice Patient/Caregiver understands and will follow care advice?: Yes, able to teach back Shingles (Zoster)-Adult- Care Advice SEE PCP WITHIN 24 HOURS: CALL BACK IF: * Fever over 100.4 F (38.0 C) * You become worse * Rash spreads to your face documented in this encounter Plan of Treatment Scheduled Procedures Name Priority Associated Diagnoses Date/Ti me PANNICULECTOMY Gastric Bypass Status Post Pannus Abdominal documented as of this encounter Visit Diagnoses Not on filedocumented in this encounter Additional Health Concerns Assessment Noted Time PHQ-9 Depression Total Score: 16 025 1:56 PM CDT documented as of this encounter Care Teams Manager Primary Relationship Specialty Start Date End Date Anjali Arzola APRN, C.N.P. [address] [place] [phone] PCP - General 02/11/24 documented as of this encounter
--- OUTSIDE RECORDS SUMMARY | 2025-05-30 16:50 | XMS_ITS | Clinical Summary ---
Author Organization [facility] Address [address] [place] [address] Care Team Providers Care Medical Leader Name Role Phone VenkatateTrevon crawley MD Primary Care Provider + Allergies No known active allergies Medications propranoloL (INDERAL) 20 mg tablet 03/03/2022 Active cyanocobalamin (VITAMIN B12) 1,000 mcg/mL injection Inject 1,000 mcg subcutaneou s. 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 Gender Identity Not on file Sexual Orientation Not on file Obstetrics History Last Filed Vital Signs Vital Sign Reading Time Taken Comments Blood Pressure 124/64 03/15/2022 9:36 AM CDT Pulse 78 03/15/2022 9:36 AM CDT Temperature 36.6 C (97.8 F) 03/15/2022 9:36 AM CDT Respiratory Rate 14 03/15/2022 9:36 AM CDT Oxygen Saturation 99% 03/15/2022 9:36 AM CDT Inhaled Oxygen Concentration - - Weight 102.5 kg (226 lb) 03/15/2022 9:36 AM CDT Height - - Body Mass Index - - Plan of Treatment Health Maintenance Due Date Last Done Comments Depression screening for age 12+ 1999 HIV for age 15-65 2002 BMI (ht and wt on same day) for age 18+ 2005 Hepatitis C screening for ag e 18-79 2005 Tetanus booster 02/12/2010 02/13/2000 Lipids for age 35-44 2022 COVID-19 vaccine series (2024- season) 2025 07/30/2021, 01/22/2021, 01/01/2021 Influenza Vaccine (#1) 2025 RSV vaccine for adults or (1 - 1-dose 75+ series) 2062 Hepatitis B series for 19+ Completed 04/29, 05/27/2000, 04/22/2000 Pneumococcal series for age 6-49 Aged Out No longer eligible b ased on patient's age to complete this topic Insurance [employer] Care Teams Medical Leader Relationship Specialty Start Date End Date Votel, Trevon Lopez MD [address] [place] [address] PCP - General 05/01/09
--- OUTSIDE RECORDS SUMMARY | 2025-05-30 16:50 | XMS_ITS | Encounter Summary ---
Author Organization [facility] Address [address] [place] [address] Care Team Providers Care Painter Mirror Name Role Phone Anjali Arzola APRN, C.N.P. Primary Care Provide r Reason for Visit * Reason Onset Date Comments Abdominal Pain 05/30/2025 Encounter Details Date Type Department Care Team (Late st Contact Info) Description 05/30/2025 Nurse Triage Department of Family Medicine, [facility], in [address] [phone] Yennifer Salinas RIrenaNIrena Abdominal Pain Social History Tobacco Use Types Packs/Day Years Used Date Smoking Tobacco: Never Smokeless Tobacco: Never Alcohol Use Standard Drinks/Week Comments Yes 1 (1 standard drink = 0.6 oz pure alcohol) I drink almost daily. This started somewhat recently. (In the last year) [facility] Utilities Answer Date Recorded In the past 12 months has [facility] electric, gas, oil, or water company threatened [...] your living situation today? I have a [facility] place to live 07/27/2024 Education Answer Date Recorded What is the highest level of school you have completed or the highest degree you have received? 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 PM DEPARTMENT CLINICIAN Legal Sex Male 4:09 PM DEPARTMENT CLINICIAN Gender Identity Male 11/03/2019 10:21 PM DEPARTMENT CLINICIAN Sexual Orientation Straight 11/03/2019 10 :21 PM DEPARTMENT CLINICIAN documented as of this encounter Miscellaneous Notes * Telephone Encounter - Yennifer Salinas R.N. - 05/30/2025 2:40 PM CDT Chief Complaint / Reason for Call Patient is a 39 y.o. male calling regarding Abdominal Pain. Assessment Concern: Return of abdominal pain. He reports the pain is currently 6-7/10. He denies new symptoms such as vomiting, fever, or chest discomfort. He states that the pain is still located in the bilateral lower portion of his abdomen. He states that the Zofran is not helping much with the nausea and his pain is at the same level it was when he was evaluated in the Emergency Department this morning. Present for: Pain began to return 1-2 hours ago. Home cares tried: Bright. He was given morphine in the Emergency Department which has worn off. Calling to request: Advice The recommended disposition is See a health care provider within 4 hours. Patient was warm transferred to [facility], Patient Appointment Periodicals Library Assistant at the clinic for further assistance., If clinic appointment is not available in the next 4 hours, caller is advised to beseen in urgent care, emergency department, or same day clinic, and Endpoint: 4 hours. Reason for Visit: Return of abdominal pain, seen in ED this morning. Video Visit: not recommended Reason for Disposition [1] MILD-MODERATE pain AND [2] constant AND [3] present > 2 hours Protocols used: Abdominal Pain - [id number] Care Advice Patient/Caregiver understands and will follow care advice?: Yes, able to teach back Abdominal Pain - [id number] Nurse Yennifer Manzo May 30, 2025 02:57 PM Care Advice SEE HCP (OR PCP TRIAGE) WITHIN 4 HOURS: * IF OFFICE WILL BE OPEN: You need to be seen within the next 3 or 4 hours. Call your doctor (or LEATHER WORKER/PA) now or as soon as the office opens. * IF OFFICE WILL BE CLOSED AND NO PCP (PRIMARY CARE PROVIDER) SECOND-LEVEL TRIAGE: You need to be seen within the next 3 or 4 hours. A nearby Urgent Care Center (UCC) is often a good source of care. Another choice is to go to the ED. Go sooner if you become worse. * IF OFFICE WILL BE CLOSED AND PCP SECOND-LEVEL TRIAGE REQUIRED: You may need to be seen. Your doctor (or LEATHER WORKER/PA) will want to talk with you to decide what's best. I'll page the on-call provider now. If you haven't heard from the provider (or me) within 30 minutes, call again. NOTE: If on-call provider can't be reached, send to UCC or ED. NOTE TO TRIAGER: * Use nurse judgment to select the most appropriate source of care. * Consider both the urgency of the patient's symptoms AND what resources may be needed to evaluate and manage the patient. SOURCES OF CARE: * ED: Patients who may need surgery or hospital admission need to be sent to an ED. So do most patients with serious symptoms or complex medical problems. * UCC: Some UCCs can manage patients who are stable and have less serious symptoms (e.g., minor illnesses and injuries). The triager must know the UCC capabilities before sending a patient there. If unsure, call ahead. * OFFICE: If patient sounds stable and not seriously ill, consult PCP (or follow your office policy) to see if patient can be seen NOW in office. CALL BACK IF: * You become worse documented in this encounter Plan of Treatment Scheduled Procedures Name Priority Associated Diagnoses Date/Ti me PANNICULECTOMY Gastric Bypass Status Post Pannus Abdominal documented as of this encounter Visit Diagnoses Not on filedocumented in this encounter Additional Health Concerns Assessment Noted Time PHQ-9 Depression Total Score: 16 03/14/ 025 1:56 PM CDT documented as of this encounter Care Teams Painter Mirror Relationship Specialty Start Date End Date Anjali Arzola APRN, C.N.P. [address] [place] [phone] PCP - General 02/11/24 documented as of this encounter
[2025-05-30 16:57] VITALS: BP 156/101; PULSE 101; RESP 20; TEMP 36; O2SAT 98; BMI 45.5
--- NOTE | 2025-05-30 17:52 | ED.ABDPAIN ---
HPI - Abdominal Pain General Date Seen: 05/30/25 Chief Complaint: Abdominal Pain Stated Complaint: abdominal pain Time Seen by Provider: 05/30/25 17:25 Source: patient Mode of arrival: ambulatory Limitations: no limitations History of Present Illness HPI narrative: Patient is a 39-year-old male presenting to the emergency department for abdominal pain. Abdominal pain started yesterday around noon. States he was just working had a his desk when the pain began. Pain is mostly in his right lower abdomen almost into the pelvis. He has never had pain like this before he states. He went to the emergency department in [place] at 03:00 this morning and had lab work and imaging done showing no acute abnormalities. Was given morphine and that was able to manage the pain for most of the day but states the pain has been coming back and becoming more painful. States he has been unable to tolerate the pain and it is making him nauseated. Does state he began to have watery diarrhea yesterday also but since then has not been eating or drinking much has had decreased diarrhea but does note it still seems watery with the small amounts he is having. He has not had any fevers or chills. Denies any testicular pain. Denies headache, chest pain, shortness of breath, lightheadedness, dizziness, weakness, numbness, dysuria, penile discharge. Has had previous gastric bypass surgery. Related Data Home Medications ?Medication ?Instructions ?Recorded ?Confirmed fluoxetine 20 mg capsule 20 mg PO DAILY 05/30/25 05/30/25 gabapentin 100 mg capsule 100 mg PO 3XD 05/30/25 05/30/25 Previous Rx's ?Medication ?Instructions ?Recorded ondansetron 4 mg disintegrating 4 mg PO Q6H #20 tabs 05/30/25 tablet oxycodone 5 mg tablet 5 mg PO Q6H PRN pain #12 tabs 05/30/25 Allergies Allergy/AdvReac Type Severity Reaction Status Date / Time NSAIDS (Non-Steroidal AdvReac Verified 05/10/25 15:21 Anti-Inflamma Review of Systems Status of ROS Reports: 10 or more systems reviewed and unremarkable except as noted in History and below PFSH PFSH Social History Smoking Status: Former smoker How often do you have a drink containing alcohol: monthly or less AUDIT-C Alcohol total score: 1 Non-prescribed substance use: marijuana (any form) service: No Exam Narrative: Exam Narrative: Const: Well-nourished, Well-developed, in mild distress Eyes: PERRL, no conjunctival injection, and symmetrical lids HENT: Atraumatic external nose and ears. Moist mucous membranes. Neck: Symmetric, trachea midline, No thyromegaly. CVS: RRR, No murmurs or gallops. Peripheral pulses 2+ and equal in all extremities RESP: Unlabored respiratory effort. Clear to auscultation bilaterally. GI: Nontender/Nondistended, No rebound or guarding. Negative McBurney's point. Tenderness around the right inguinal ligament. No signs of hernia : Normal cremasteric reflex bilaterally, no scrotal swelling noted. No tenderness to palpation noted to either testicle. No signs of indirect hernia MSK:Extremities w/o deformity, Normal Active ROM Skin: Warm, Dry. No rashes or lesions. Neuro: Normal Muscle tone, No focal neurological deficits. Psych: Awake, Alert, & Oriented x3. Appropriate mood and affect. Const: Vital Signs, click to edit/add: Vital Signs - 24 hr 05/30/25 16:57 Temperature 96.8 F L Pulse Rate [Pulse Oximeter] 101 H Respiratory Rate 20 Blood Pressure [Ri ght Upper Arm] 156/101 H Pulse Oximetry 98 Oxygen Delivery Me thod Room Air Course Vital Signs Vital signs: Initial Vital Signs Temperature 96.8 F L 05/30/25 16:57 Temperature Source Temporal Artery Scan 05/30/25 16:57 Pulse Rate 101 H 05/30/25 16:57 Respiratory Rate 20 05/30/25 16:57 Blood Pressure 156/101 H 05/30/25 16:57 Blood Pressure Mean 119 H 05/30/25 16:57 Blood Pressure Position Sitting 05/30/25 16:57 Pulse Oximetry 98 05/30/25 16:57 Oxygen Delivery Method Room Air 05/30/25 16:57 Vital Signs Temperature 96.8 F L 05/30/25 16:57 Pulse Rate 101 H 05/30/25 16:57 Respiratory Rate 20 05/30/25 16:57 Blood Pressure 156/101 H 05/30/25 16:57 Pulse Oximetry 98 05/30/25 16:57 Oxygen Delivery Method Room Air 05/30/25 16:57 Temperature 96.8 F L 05/30/25 16:57 Pulse Rate 101 H 05/30/25 16:57 Respiratory Rate 20 05/30/25 16:57 Blood Pressure 156/101 H 05/30/25 16:57 Pulse Oximetry 98 05/30/25 16:57 Oxygen Delivery Method Room Air 05/30/25 16:57 Medications Administered Medications: Discontinued Medications Generic Name Dose Route Start Last Admin Trade Name Vic PRN Reason Stop Dose Admin Ondansetron HCl 4 mg 05/30/25 17:46 05/30/25 18:11 Ondansetron Odt 4 Mg Tab PO 05/30/25 17:47 4 mg ONCE ONE Administration Oxycodone HCl 5 mg 05/30/25 17:46 05/30/25 18:11 Oxycodone 5 Mg Tablet PO 05/30/25 17:47 5 mg ONCE ONE Administration MDM - Abdominal Pain MDM Narrative Medical decision making narrative: Patient is a 39-year-old male presenting for abdominal pain. He does have pain in the right lower quadrant they do have some concern for appendicitis were considered he does has CT scan earlier this morning I will hold off on further imaging until lab work is done. If lab work shows any abnormalities I spoke to him about possibly doing imaging then. He is agreeable to this plan has is unlikely if a repeat CT scan this soon is going to show any new abnormalities and would be unnecessary radiation for a person of this age. With the diarrhea this also could be a viral gastroenteritis/colitis causing his pain. The location of the plane could also be a strain of the inguinal ligament although this seems unlikely as he was sitting at the time of pain onset. Seems very unlikely to be gallbladder/liver disease or pancreatitis considering location of pain. Does admit to be a chronic drinker though I will recheck a CMP, BMP and lipase. Will also order urinalysis as he states that has not been done before. Oxycodone given for pain and Zofran given for any potential nausea. He is feeling much better after the medication. Lab work returned showing no acute concerning abnormalities. Concerning the normal lab work I do not believe a repeat CT scan would be beneficial. His white blood cell count this morning was 6 at the outside hospital and now has only gone up to 7.79. Some this could be from dehydration as he is not 8 per drink much today due to the symptoms. At this time he feels comfortable discharge. Will prescribe him oxycodone and Zofran. He is agreeable to this plan Lab Data Labs: Lab Results 05/30/25 05/30/25 Range/Units 17:46 17:55 WBC 7.79 (4.50-11.00) K/uL RBC 5.63 (4.30-5.90) m/uL Hgb 15.9 (13.5-17.5) gm/dL Hct 47.0 (37.0-53.0) % MCV 84 (80-100) fL MCH 28 (26-34) pg MCHC 34 (32-36) gm/dL RDW Coeff of Marjan 12.6 (11.5-15.5) % Plt Count 308 (140-440) K/uL Neut % (Auto) 65.5 (42.0-72.0) % Lymph % (Auto) 23.9 (20-44) % [place] % (Auto) 7.7 (0.0-11.0) % Eos % (Auto) 2.1 (0.0-7.0) % Baso % (Auto) 0.5 (0.0-3.0) % Neut # (Auto) 5.11 (1.7-7.0) K/uL Lymph # (Auto) 1.86 (0.90-2.90) K/uL [place] # (Auto) 0.60 (0.00-0.90) K/UL Eos # (Auto) 0.16 (0.00-0.50) K/uL Baso # (Auto) 0.04 (0.00-0.30) K/uL Abs Immat Gran (auto) 0.02 (0.00-0.30) K/uL Imm/Tot Granulo (auto) 0.3 % Sodium 138 (135-149) mmol/L Potassium 3.9 (3.6-5.1) mmol/L Chloride 103 (96-114) mmol/L Carbon Dioxide 27 (20-32) mmol/L Anion Gap 8 (7-15) mEq/L BUN 13 (5-24) mg/dL Creatinine 0.9 (0.5-1.5) mg/dL Estimated Creat Clear 119.69 Estimated GFR 113 ml/min Glucose 109 (60-115) mg/dL Calcium 9.3 (8.4-10.6) mg/dL Total Bilirubin 0.6 (0.1-1.5) mg/dL AST 32 (12-35) U/L ALT 37 (4-50) U/L Alkaline Phosphatase 79 (40-150) U/L Total Protein 7.6 (6.0-8.3) g/dL Albumin 4.6 (3.3-5.0) g/dL Lipase 85 (23-300) U/L Urine Color Yellow (Yellow) Urine Appearance Clear (Clear) Urine pH 6.0 (5.0-8.5) Ur Specific Collins 1.025 (1.000-1.030) Urine Protein Negative (Negative) Urine Glucose (UA) Negative (Negative) Urine Ketones Trace A (Negative) Urine Blood Negative (Negative) Urine Nitrite Negative (Negative) Urine Bilirubin Negative (Negative) Urine Urobilinogen 0.2 (0.2-1.0) Ur Leukocyte Esterase Negative (Negative) Urine RBC 0-2 (0-2) Urine WBC 0-2 (0-5) Ur Squamous Epith Cells None (None-Few) Urine Bacteria None (None) Discharge Plan Discharge Clinical Impression: Abdominal pain Qualifiers: Abdominal location: right lower quadrant Qualified Code(s): R10.31 - Right lower quadrant pain Patient Disposition: Home, Self-Care Condition: Improved Instructions: Abdominal Pain (ED) Additional Instructions: Use the oxycodone as needed for pain. You need to follow-up with primary care provider for further pain management if it persist. You will be unable to get further narcotics from this emergency department for this pain. I do recommend close follow-up with primary care provider. At this time symptoms could be a viral infection foot return if he starts developing fevers, chills, worsening pain or any other new or worsening symptoms. Use the Zofran as needed for pain Prescriptions: New ondansetron 4 mg tablet,disintegrating 4 mg PO Q6H Qty: 20 0RF oxycodone 5 mg tablet 5 mg PO Q6H PRN (Reason: pain) Qty: 12 0RF No Action gabapentin 100 mg capsule 100 mg PO 3XD fluoxetine 20 mg capsule 20 mg PO DAILY Follow Up/Referrals: Teofilo Ramirez MD [Referring, Family Practice] [facility] Inst[facility]
[2025-05-30] MEDS: ONDANSETRON ODT 4 MG TAB PO (18:11)
[2025-05-30 18:12] LABS: Hematocrit* 47.0 % (37.0-53.0); Hemoglobin* 15.9 gm/dL (13.5-17.5); Immature Granulocytes Abs Auto 0.02 K/uL (0.00-0.30); Immature Granulocytes Pct Auto 0.3 %; Lymphocytes Absolute Auto 1.86 K/uL (0.90-2.90); Mean Corpuscular HGB Conc 34 gm/dL (32-36); Mean Corpuscular Hemoglobin 28 pg (26-34); Mean Corpuscular Volume 84 fL (80-100); RDW Coefficient of Variation % 12.6 % (11.5-15.5); Red Blood Count* 5.63 m/uL (4.30-5.90); White Blood Count* 7.79 K/uL (4.50-11.00)
[2025-05-30 18:27] LABS: Appearance Urine Clear (Clear)
[2025-05-30 18:30] LABS: Albumin* 4.6 g/dL (3.3-5.0); Chloride* 103 mmol/L (96-114); Sodium* 138 mmol/L (135-149)
[2025-05-30 18:31] LABS: Potassium* 3.9 mmol/L (3.6-5.1); Slide Review Reflex No
[2025-05-30 18:33] LABS: Alanine Aminotransferase* 37 U/L (4-50); Alkaline Phosphatase* 79 U/L (40-150); Anion Gap 8 mEq/L (7-15); Aspartate Amino Transferase* 32 U/L (12-35); Bilirubin Total* 0.6 mg/dL (0.1-1.5); Blood Urea Nitrogen* 13 mg/dL (5-24); Carbon Dioxide* 27 mmol/L (20-32); Creatinine* 0.9 mg/dL (0.5-1.5); Est. Creatinine Clearance* 119.69; Estimated Glomerular Filt Rate 113 ml/min; Total Protein* 7.6 g/dL (6.0-8.3)
[2025-05-30 18:34] LABS: Calcium* 9.3 mg/dL (8.4-10.6); Glucose* 109 mg/dL (60-115)
== END 2025-05-30 19:47 | disposition home or self-care (01) ==
PROVIDERS: Emergency Provider Student in an Organized Health Care Education/Training Program
DX: R10.31 Right lower quadrant pain (principal)
CPT/HCPCS: 36415; 80053; 81001; 83690; 85025; 99283; A9270